=== PATIENT | male | born 1930 | race Caucasian/White ===

== ENCOUNTER 2017-11-09 11:44 | Emergency (ER) | payer MEDICARE ==
--- NOTE | 2017-11-09 12:39 | CT ---
CT OF THE BRAIN WITHOUT CONTRAST: COMPARISON: None. HISTORY: Fell in the shower last night and busted head open. Closed-head injury. The patient is on blood thi nners. TECHNIQUE: Multiple contiguous axial images were obtained in a CT of the brain without contrast. 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 No large confluent infarction is seen. There is no evidence of hydrocephalus, intracranial hemorrhage, or extraaxial fluid collection. There are barry in the frontal scalp. The underlying calvarium is unremarkable. The visualized pa ranasal sinuses and mastoid air cells are well aerated. IMPRESSION: No evidence of acute intracranial abnormality. POS: H
== END 2017-11-09 13:01 | disposition home or self-care (01) ==
LOC: ERS 11:44
DX: S09.90XA Unspecified injury of head, initial encounter (principal); W18.2XXA Fall in (into) shower or empty bathtub, initial encounter
CPT/HCPCS: 70450